=== PATIENT | female | born 2000 | race Caucasian/White ===

== ENCOUNTER 2024-03-21 12:40 | Emergency (ER) | payer MEDICAID ==
[~2024-03-21] VITALS: Ht 160 cm; Wt 73.9 kg
[2024-03-21 13:03] VITALS: TEMP 98; O2SAT 100
[2024-03-21] MEDS ORDERED: LIDOCAINE HCL 1% 20ML VIAL INFIL ONE (17:00)
[2024-03-21] MEDS: TETANUS, DIPHTHERIA, PERTUSSIS VAC/PF 0.5ML (>10YR OLD) IM ONE (17:06)
[2024-03-21] MEDS ORDERED: CEPH500C2 MT (17:30)
[2024-03-21] MEDS ORDERED: BO1 TP (17:30)
[2024-03-21 18:11] VITALS: BP 130/74; PULSE 88; RESP 16; O2SAT 100
== END 2024-03-21 18:12 | disposition home or self-care (01) ==
LOC: ER 12:53
DX: S51.812A Laceration without foreign body of left forearm, initial encounter (principal); Z00.00 Encounter for general adult medical examination without abnormal findings; X58.XXXA Exposure to other specified factors, initial encounter; Y93.89 Activity, other specified; Y92.89 Other specified places as the place of occurrence of the external cause; Y99.8 Other external cause status
CPT/HCPCS: 12002; 90471; 90715; 99283